=== PATIENT | female | born 1990 | race Caucasian/White ===

== ENCOUNTER 2018-01-01 17:53 | Emergency (ER) | payer SELFPAY ==
[~2018-01-01] VITALS: Ht 172.7 cm; Wt 60.0 kg
[~2018-01-01 17:53] MED LIST: DOCU-131 PO; IBUP-1222 PO; NORE0.3515 PO; OXYC-302 PO
[2018-01-01] MEDS ORDERED: ONDANSETRON 2MG/ML, 2ML ONE (18:26)
[2018-01-01] MEDS ORDERED: FAMOTIDINE 20 MG/2 ML ONE (18:26)
[2018-01-01] MEDS ORDERED: FAMOTIDINE 20 MG/2 ML IVP ONE (18:30)
[2018-01-01] MEDS ORDERED: SODIUM CHLORIDE FLUSH 10ML SYR IVF ONE (18:30)
[2018-01-01] MEDS ORDERED: ONDANSETRON 2MG/ML, 2ML IVPush ONE (18:30)
[2018-01-01 19:13] LABS: BASOPHILS # (AUTO) 0.01 x10^3/uL (0-0.1); BASOPHILS % (AUTO) 0 % (0-1); EOSINOPHILS % (AUTO) 0 % (1-7); LYMPHOCYTES % (AUTO) 10 % (22-44); MD NO; MEAN CORPUSCULAR HEMOGLOBIN 27.3 pg (27.0-34.8); MEAN CORPUSCULAR HGB CONC 33.3 g/dL (32.4-35.8); MEAN CORPUSCULAR VOLUME 81.8 fL (80-100); MEAN PLATELET VOLUME 7.2 fL (7.4-10.4); MONOCYTES # (AUTO) 0.26 x10^3/uL (0.2-0.8); MONOCYTES % (AUTO) 3 % (2-9); NEUTROPHILS # (AUTO) 9.12 x10^3/uL (1.8-6.8); NEUTROPHILS % (AUTO) 88 % (42-75); PLATELET COUNT 407 x10^3/uL (130-400); RED BLOOD COUNT 5.26 x10^6/uL (3.82-5.3); RED CELL DISTRIBUTION WIDTH 14.1 % (9.6-15.2)
[2018-01-01 19:17] VITALS: BP 110/70
[2018-01-01 19:18] LABS: MICROSCOPIC INDICATED
[2018-01-01 19:22] LABS: ALANINE AMINOTRANSFERASE 19 U/L (12-78); ALBUMIN 4.5 g/dL (3.4-5.0); ANION GAP 9 mmol/L (5-15); CALCIUM 9.3 mg/dL (8.5-10.1); CHLORIDE 108 mmol/L (98-107); CREATININE 0.86 mg/dL (0.55-1.02)
[2018-01-01 19:27] LABS: ALKALINE PHOSPHATASE 74 U/L (45-117); BILIRUBIN,TOTAL 0.5 mg/dL (0.2-1.0); TOTAL PROTEIN 8.4 g/dL (6.4-8.2)
[2018-01-01 19:32] LABS: CULTURE INDICATED? YES
== END 2018-01-01 20:43 | disposition home or self-care (01) ==
LOC: ED 20:37
DX: R10.84 Generalized abdominal pain (principal); R11.2 Nausea with vomiting, unspecified
CPT/HCPCS: 36415; 76700; 80053; 81001; 83690; 84703; 85025; 87086; 96374; 96375; 99285; J2405; S0028

== ENCOUNTER 2019-01-23 19:42 | Emergency (ER) | payer SELFPAY ==
[~2019-01-23] VITALS: Ht 172.7 cm; Wt 61.7 kg
[2019-01-23 19:50] VITALS: BP 129/81
[2019-01-23] MEDS ORDERED: MORPHINE SULFATE 4 MG/ML, 1ML ONE (20:19)
[2019-01-23] MEDS ORDERED: ONDANSETRON 2MG/ML, 2ML ONE (20:19)
[2019-01-23] MEDS ORDERED: FAMOTIDINE 20 MG/2 ML ONE (20:20)
[2019-01-23] MEDS ORDERED: ONDANSETRON 2MG/ML, 2ML IVPush ONE (20:30)
[2019-01-23] MEDS ORDERED: FAMOTIDINE 20 MG/2 ML IVPush ONE (20:30)
[2019-01-23] MEDS ORDERED: MORPHINE SULFATE 4 MG/ML, 1ML IVPush PRN (20:30)
[2019-01-23 21:24] LABS: BASOPHILS # (AUTO) 0.02 x10^3/uL (0-0.1); BASOPHILS % (AUTO) 0 % (0-1); EOSINOPHILS % (AUTO) 0 % (1-7); LYMPHOCYTES # (AUTO) 0.95 x10^3/uL (1-3.4); LYMPHOCYTES % (AUTO) 11 % (22-44); MD NO; MEAN CORPUSCULAR HEMOGLOBIN 27.5 pg (27.0-34.8); MEAN CORPUSCULAR HGB CONC 33.8 g/dL (32.4-35.8); MEAN CORPUSCULAR VOLUME 81.2 fL (80-100); MEAN PLATELET VOLUME 7.7 fL (7.4-10.4); MONOCYTES # (AUTO) 0.24 x10^3/uL (0.2-0.8); MONOCYTES % (AUTO) 3 % (2-9); NEUTROPHILS # (AUTO) 7.63 x10^3/uL (1.8-6.8); NEUTROPHILS % (AUTO) 86 % (42-75); PLATELET COUNT 343 x10^3/uL (130-400); RED CELL DISTRIBUTION WIDTH 15.4 % (9.6-15.2)
[2019-01-23 21:34] LABS: ALANINE AMINOTRANSFERASE 18 U/L (12-78); ALBUMIN 4.4 g/dL (3.4-5.0); ANION GAP 10 mmol/L (5-15); CHLORIDE 111 mmol/L (98-107)
[2019-01-23 21:37] LABS: SALICYLATE LEVEL < 1.7 mg/dL (2.8-20.0)
[2019-01-23 21:39] LABS: ALKALINE PHOSPHATASE 57 U/L (45-117); BILIRUBIN,TOTAL 0.7 mg/dL (0.2-1.0); CREATININE 0.81 mg/dL (0.55-1.02); TOTAL PROTEIN 7.6 g/dL (6.4-8.2)
[2019-01-23 21:43] LABS: ACETAMINOPHEN < 2 mcg/mL (10-30)
--- NOTE | 2019-01-23 21:47 | NUR ---
REPORT RECEIVED FROM VALERIY SU, RESHMA ARE OF PT. REINTERATED NEED FOR UA SAMPLE
[2019-01-23] MEDS ORDERED: SODIUM CHLORIDE 0.9% 1,000ML IVBOLUS ONE (22:30)
[2019-01-23] MEDS ORDERED: PROCHLORPERAZINE 5 MG/ML, 2ML IVPush ONE (22:30)
[2019-01-23 22:38] LABS: AMPHETAMINE SCREEN, URINE Negative (Negative); BARBITURATE SCREEN, URINE Negative (Negative); BENZODIAZEPINE SCREEN, URINE Negative (Negative); CANNABINOID SCREEN, URINE Positive (Negative); COCAINE SCREEN, URINE Negative (Negative); METHADONE SCREEN, URINE Positive (Negative); OPIATE SCREEN, URINE Positive (Negative)
[2019-01-23 22:42] LABS: MICROSCOPIC INDICATED
[2019-01-23 22:43] LABS: CULTURE INDICATED? YES
--- NOTE | 2019-01-23 23:00 | NUR ---
NS STARTED, MEDICATED FOR NAUSEA, NO VOMITING
[2019-01-23] MEDS ORDERED: PROCHLORPERAZINE 5 MG/ML, 2ML ONE (23:03)
[2019-01-23] MEDS ORDERED: ONDANSETRON ODT 4 MG ONE (23:12)
== END 2019-01-24 00:40 | disposition home or self-care (01) ==
LOC: ED 22:15
DX: K52.9 Noninfective gastroenteritis and colitis, unspecified (principal); F12.10 Cannabis abuse, uncomplicated
CPT/HCPCS: 36415; 80053; 80307; 80329; 81001; 83690; 84703; 85025; 87086; 96361; 96374; 96375; 99283; J0780; J2405; J3490; J7030; G0480

== ENCOUNTER 2020-07-12 13:51 | Emergency (ER) | payer MEDICAID ==
[~2020-07-12] VITALS: Ht 172.7 cm; Wt 71.6 kg
[2020-07-12 13:54] VITALS: BP 151/78
[2020-07-12] MEDS ORDERED: KETOROLAC 30 MG/1 ML IM ONE (14:30)
[2020-07-12] MEDS ORDERED: ACETAMINOPHEN 325 MG TABLET PO ONE (14:30)
[2020-07-12] MEDS ORDERED: CYCLOBENZAPRINE 10 MG TABLET PO ONE (14:30)
[2020-07-12] MEDS ORDERED: ACETAMINOPHEN 325 MG TABLET ONE (14:31)
[2020-07-12] MEDS ORDERED: CYCLOBENZAPRINE 10 MG TABLET ONE (14:31)
[2020-07-12] MEDS ORDERED: KETOROLAC 60 MG/2 ML ONE (14:31)
--- NOTE | 2020-07-12 14:43 | NUR ---
ADMISSIONS DEAN PER MAR.
== END 2020-07-12 15:18 | disposition home or self-care (01) ==
LOC: ED 15:09
DX: S46.911A Strain of unspecified muscle, fascia and tendon at shoulder and upper arm level, right arm, initial encounter (principal); X58.XXXA Exposure to other specified factors, initial encounter; Y93.89 Activity, other specified; Y92.89 Other specified places as the place of occurrence of the external cause; Y99.8 Other external cause status
CPT/HCPCS: 73030; 96372; 99283; J1885